=== PATIENT | male | born 1960 | race Two or more races ===

== ENCOUNTER 2018-03-04 11:02 | Emergency (ER) | payer OTHER ==
[~2018-03-04] VITALS: Ht 175.3 cm; Wt 113.4 kg
[~2018-03-04 11:02] MED LIST: CARdura 2MG TABLET PO; LoPRESSOR 100MG TAB PO; METOPROLOL SUCC50 MG; MOBIC15 MG PO; Neurin-Sl Tablet Sl SL; ORPH100T PO; PROCARDIA PO; PROCARDIA90 MG/BLIS; Protonix PO; VASOTEC 20MG TAB PO
[2018-03-04] MEDS ORDERED: ZYRTEC10 M3 PO (14:33)
[2018-03-04] MEDS ORDERED: MEDROLPACK PO (14:33)
[2018-03-04] MEDS ORDERED: BENADRYL25 MG PO (14:33)
== END 2018-03-04 14:41 | disposition home or self-care (01) ==
LOC: ER 11:02
DX: R60.0 Localized edema (principal); T39.8X5A Adverse effect of other nonopioid analgesics and antipyretics, not elsewhere classified, initial encounter

== ENCOUNTER 2018-11-10 11:15 | Emergency (ER) | payer OTHER ==
[~2018-11-10] VITALS: Ht 177.8 cm; Wt 136.1 kg
[~2018-11-10 11:15] MED LIST changes: +BENADRYL25 MG PO; +MEDROLPACK PO; +ZYRTEC10 M3 PO
[2018-11-10] MEDS ORDERED: VASOTEC20 M1 (11:59)
[2018-11-10] MEDS ORDERED: CARDURA1 MG (11:59)
[2018-11-10] MEDS ORDERED: SKELAXIN800 MG PO (14:08)
== END 2018-11-10 15:05 | disposition home or self-care (01) ==
LOC: ER 11:15
DX: M62.838 Other muscle spasm (principal)

== ENCOUNTER 2019-01-16 12:17 | Emergency (ER) | payer OTHER ==
[~2019-01-16] VITALS: Ht 177.8 cm; Wt 133.8 kg
[~2019-01-16 12:17] MED LIST changes: +CARDURA1 MG; +SKELAXIN800 MG PO; +VASOTEC20 M1
[2019-01-16] MEDS ORDERED: ZITHROMAX500 MG PO (18:52)
[2019-01-16] MEDS ORDERED: MEDROLPACK PO (18:52)
== END 2019-01-16 19:32 | disposition home or self-care (01) ==
LOC: ER 12:17
DX: J44.1 Chronic obstructive pulmonary disease with (acute) exacerbation (principal); I10 Essential (primary) hypertension; G47.33 Obstructive sleep apnea (adult) (pediatric); E66.8 Other obesity; Z87.891 Personal history of nicotine dependence